=== PATIENT | male | born 1985 | race Two or more races ===

== ENCOUNTER 2022-01-27 18:16 | Inpatient (IN) | payer OTHER ==
[~2022-01-27] VITALS: Ht 162.6 cm; Wt 58.0 kg
[2022-01-27 18:56] LABS: BASOPHILS % (AUTO) 0.5 % (0.0-2.0); EOSINOPHILS % (AUTO) 1.8 % (1.0-6.0); HEMATOCRIT 42.9 % (41-53); LYMPHOCYTES # (AUTO) 1.8 K/uL (1.0-4.8); LYMPHOCYTES % (AUTO) 23.4 % (22.0-44.0); MEAN CORPUSCULAR HEMOGLOBIN 30.9 pg (26.0-34.0); MEAN CORPUSCULAR VOLUME 88 fL (80-100); MONOCYTES % (AUTO) 12.4 % (2.0-9.0); NEUTROPHILS # (AUTO) 4.8 K/uL (1.8-7.7); NEUTROPHILS % (AUTO) 61.9 % (40.0-70.0); PLATELET COUNT (AUTO) 477 K/uL (150-450); RED BLOOD CELL COUNT(AUTO) 4.85 MIL/uL (4.50-5.90); RED CELL DISTRIBUTION WIDTH 12.9 % (11.5-14.5)
[2022-01-27 19:05] LABS: ANION GAP 10 mmol/L (8-16); CARBON DIOXIDE 27 mmol/L (22-29); CHLORIDE 101 mmol/L (98-107); CREATININE 0.65 mg/dL (0.60-1.30); GLUCOSE,RANDOM 93 mg/dL (70-110); POTASSIUM 4.2 mmol/L (3.5-5.1); SODIUM SERUM 138 mmol/L (136-145); UREA NITROGEN, BLOOD 9 mg/dL (7-18)
[2022-01-27 19:08] LABS: GLOMERULAR FILTR. RATE CALC > 60 mL/min (>60)
[2022-01-27 19:11] LABS: ALANINE AMINOTRANSFERASE 37 U/L (12-78); ALBUMIN 3.5 g/dL (3.4-5.0); ALKALINE PHOSPHATASE 93 U/L (46-116); ASPARTATE AMINOTRANSFERASE 18 U/L (15-37); BILIRUBIN,TOTAL 0.3 mg/dL (0.1-1.0); TOTAL PROTEIN, SERUM 8.1 g/dL (6.4-8.2)
[2022-01-27 19:11] LABS: COVID AG,FIA SOURCE NASOPHARYNGEAL
[2022-01-27] MEDS ORDERED: ALBUTEROL SULFATE HFA 90 MCG/PUFF 8 GM INHALER IH PRN (21:30)
[2022-01-27] MEDS ORDERED: IBUPROFEN 400 MG TABLET PO PRN (21:30)
[2022-01-27] MEDS ORDERED: LOPERAMIDE HCL 2 MG CAPSULE PO PRN (21:30)
[2022-01-27] MEDS ORDERED: MAG HYDROX/AL HYDROX/SIMETH ES 30 ML SUSPENSION UDCUP PO PRN (21:30)
[2022-01-27] MEDS ORDERED: NICOTINE 14 MG/24 HOUR PATCH TD PRN (21:30)
[2022-01-27] MEDS ORDERED: GuaiFENesin/D-METHORPHAN [SUGAR-FREE] 200-20MG/10 ML SYRUP UDCUP PO PRN (21:30)
[2022-01-27] MEDS ORDERED: PETROLATUM,WHITE 28 GM JELLY TP PRN (21:30)
[2022-01-27] MEDS ORDERED: CloNIDine HCL 0.1 MG TABLET PO PRN (21:30)
[2022-01-27] MEDS ORDERED: MAGNESIUM HYDROXIDE SUSPENSION 30 ML UDCUP PO PRN (21:30)
[2022-01-27] MEDS ORDERED: ONDANSETRON HCL 4 MG TABLET PO PRN (21:30)
[2022-01-27] MEDS ORDERED: ACETAMINOPHEN 325 MG TABLET PO PRN (21:30)
[2022-01-28 01:01] VITALS: BP 107/72
[2022-01-28 04:00] VITALS: BP 97/56
[2022-01-28 07:11] LABS: BASOPHILS % (AUTO) 0.6 % (0.0-2.0); EOSINOPHILS % (AUTO) 1.5 % (1.0-6.0); HEMATOCRIT 43.9 % (41-53); HEMOGLOBIN 15.3 g/dL (13.5-17.5); LYMPHOCYTES # (AUTO) 1.1 K/uL (1.0-4.8); LYMPHOCYTES % (AUTO) 12.6 % (22.0-44.0); MEAN CORPUSCULAR HEMOGLOBIN 30.9 pg (26.0-34.0); MEAN CORPUSCULAR HGB CONC 34.9 G/dL (31.0-37.0); MEAN CORPUSCULAR VOLUME 88 fL (80-100); MONOCYTES % (AUTO) 11.2 % (2.0-9.0); NEUTROPHILS # (AUTO) 6.3 K/uL (1.8-7.7); NEUTROPHILS % (AUTO) 74.1 % (40.0-70.0); PLATELET COUNT (AUTO) 440 K/uL (150-450); RED BLOOD CELL COUNT(AUTO) 4.96 MIL/uL (4.50-5.90); RED CELL DISTRIBUTION WIDTH 13.4 % (11.5-14.5)
[2022-01-28 08:10] VITALS: BP 107/57
[2022-01-28 16:08] VITALS: BP 105/56
[2022-01-28 19:55] VITALS: BP 106/58
[2022-01-29 01:15] VITALS: BP 106/69
[2022-01-29 03:40] VITALS: BP 104/64
[2022-01-29 08:10] VITALS: BP 101/59
[2022-01-29] MEDS ORDERED: SODIUM CHLORIDE 3% 15 ML NEB SOLUTION NEB ONE (16:31)
[2022-01-29 20:16] VITALS: BP 97/59
[2022-01-30 05:07] VITALS: BP 103/65
[2022-01-30 07:07] LABS: HIV 1-2 SCREEN 4TH GEN W/RFLX Non Reactive (Non Reactive)
[2022-01-30 07:29] VITALS: BP 102/61
[2022-01-30] MEDS ORDERED: 0.9% SODIUM CHLORIDE 5 ML NEB SOLUTION NEB ONE (09:42)
[2022-01-30] MEDS ORDERED: SODIUM CHLORIDE 3% 15 ML NEB SOLUTION NEB ONE (09:42)
[2022-01-30 15:07] VITALS: BP 108/64
[2022-01-30 20:00] VITALS: BP 108/63
[2022-01-31 05:00] VITALS: BP 103/60
[2022-01-31 07:37] VITALS: BP 104/58
[2022-01-31 16:06] VITALS: BP 107/61
[2022-01-31 20:15] VITALS: BP 104/61
[2022-02-01 04:20] VITALS: BP 102/64
[2022-02-01 08:32] VITALS: BP 108/64
[2022-02-01 20:12] VITALS: BP 109/69
[2022-02-02 04:37] VITALS: BP 104/61
[2022-02-02 08:11] VITALS: BP 109/58
[2022-02-02 10:07] LABS: QUANTIFERON, TB GOLD PLUS Positive (Negative)
[2022-02-02 16:02] VITALS: BP 116/73
[2022-02-02 19:40] VITALS: BP 111/62
[2022-02-03 04:10] VITALS: BP 96/65
[2022-02-03 08:00] VITALS: BP 129/59
[2022-02-03 16:08] VITALS: BP 124/62
[2022-02-03 20:14] VITALS: BP 108/60
[2022-02-04 04:55] VITALS: BP 104/65
[2022-02-04 07:49] VITALS: BP 102/61
[2022-02-04 15:54] VITALS: BP 113/60
[2022-02-04 20:21] VITALS: BP 112/61
[2022-02-05 04:30] VITALS: BP 109/62
[2022-02-05 08:07] VITALS: BP 100/69
[2022-02-05 10:43] LABS: COVID AG,FIA SOURCE NASAL SWAB
[2022-02-05 16:15] VITALS: BP 100/56
[2022-02-05 19:25] VITALS: BP 109/58
[2022-02-06 04:39] VITALS: BP 102/59
[2022-02-06 08:25] VITALS: BP 100/67
[2022-02-06] MEDS: RIFAMPIN 300 MG CAPSULE PO SCH (13:04)
[2022-02-06] MEDS: ISONIAZID 300 MG TABLET PO SCH (13:04)
[2022-02-06] MEDS: PYRAZINAMIDE 500 MG TABLET PO SCH (13:04)
[2022-02-06] MEDS: ETHAMBUTOL HCL 400 MG TABLET PO SCH (13:05)
[2022-02-06] MEDS: PYRIDOXINE HCL 50 MG TABLET PO SCH (13:05)
[2022-02-06 20:01] VITALS: BP 101/60
[2022-02-07 04:29] VITALS: BP 103/64
[2022-02-07 08:14] VITALS: BP 92/57
[2022-02-07] MEDS: PYRAZINAMIDE 500 MG TABLET PO SCH (08:56)
[2022-02-07] MEDS: PYRIDOXINE HCL 50 MG TABLET PO SCH (08:56)
[2022-02-07] MEDS: DOCUSATE SODIUM 100 MG CAPSULE PO PRN (08:56)
[2022-02-07] MEDS: RIFAMPIN 300 MG CAPSULE PO SCH (08:56)
[2022-02-07] MEDS: ISONIAZID 300 MG TABLET PO SCH (08:57)
[2022-02-07] MEDS: ETHAMBUTOL HCL 400 MG TABLET PO SCH (08:57)
[2022-02-07 16:22] VITALS: BP 96/67
[2022-02-07 19:31] VITALS: BP 111/67
[2022-02-08 05:32] VITALS: BP 97/61
[2022-02-08 07:37] VITALS: BP 113/65
[2022-02-08] MEDS: RIFAMPIN 300 MG CAPSULE PO SCH (08:27)
[2022-02-08] MEDS: ISONIAZID 300 MG TABLET PO SCH (08:27)
[2022-02-08] MEDS: ETHAMBUTOL HCL 400 MG TABLET PO SCH (08:28)
[2022-02-08] MEDS: PYRAZINAMIDE 500 MG TABLET PO SCH (08:28)
[2022-02-08] MEDS: PYRIDOXINE HCL 50 MG TABLET PO SCH (08:28)
[2022-02-08] MEDS: DOCUSATE SODIUM 100 MG CAPSULE PO PRN (08:28)
[2022-02-08 15:35] VITALS: BP 116/68
[2022-02-08 19:59] VITALS: BP 97/54
[2022-02-09 05:27] VITALS: BP 94/55
[2022-02-09] MEDS: DOCUSATE SODIUM 100 MG CAPSULE PO PRN (07:59)
[2022-02-09] MEDS: RIFAMPIN 300 MG CAPSULE PO SCH (07:59)
[2022-02-09] MEDS: ETHAMBUTOL HCL 400 MG TABLET PO SCH (07:59)
[2022-02-09] MEDS: PYRAZINAMIDE 500 MG TABLET PO SCH (07:59)
[2022-02-09] MEDS: ISONIAZID 300 MG TABLET PO SCH (07:59)
[2022-02-09] MEDS: PYRIDOXINE HCL 50 MG TABLET PO SCH (07:59)
[2022-02-09 08:11] VITALS: BP 105/51
[2022-02-09 15:35] VITALS: BP 105/66
[2022-02-09 20:47] VITALS: BP 106/72
[2022-02-10 05:00] VITALS: BP 103/68
[2022-02-10 07:10] LABS: BASOPHILS % (AUTO) 0.5 % (0.0-2.0); EOSINOPHILS % (AUTO) 3.1 % (1.0-6.0); HEMATOCRIT 42.1 % (41-53); HEMOGLOBIN 14.7 g/dL (13.5-17.5); LYMPHOCYTES # (AUTO) 2.4 K/uL (1.0-4.8); LYMPHOCYTES % (AUTO) 27.4 % (22.0-44.0); MEAN CORPUSCULAR HEMOGLOBIN 30.8 pg (26.0-34.0); MEAN CORPUSCULAR VOLUME 88 fL (80-100); MONOCYTES # (AUTO) 0.7 K/uL (0.1-1.0); MONOCYTES % (AUTO) 8.3 % (2.0-9.0); NEUTROPHILS # (AUTO) 5.4 K/uL (1.8-7.7); NEUTROPHILS % (AUTO) 60.7 % (40.0-70.0); PLATELET COUNT (AUTO) 319 K/uL (150-450); RED BLOOD CELL COUNT(AUTO) 4.78 MIL/uL (4.50-5.90); RED CELL DISTRIBUTION WIDTH 13.6 % (11.5-14.5)
[2022-02-10 07:28] LABS: ALANINE AMINOTRANSFERASE 47 U/L (12-78); ALBUMIN 3.3 g/dL (3.4-5.0); ALKALINE PHOSPHATASE 83 U/L (46-116); ANION GAP 3 mmol/L (8-16); ASPARTATE AMINOTRANSFERASE 18 U/L (15-37); BILIRUBIN,TOTAL 0.3 mg/dL (0.1-1.0); CALCIUM, TOTAL 9.1 mg/dL (8.8-10.5); CARBON DIOXIDE 31 mmol/L (22-29); CHLORIDE 103 mmol/L (98-107); CREATININE 1.07 mg/dL (0.60-1.30); GLUCOSE,RANDOM 93 mg/dL (70-110); POTASSIUM 4.5 mmol/L (3.5-5.1); SODIUM SERUM 137 mmol/L (136-145); TOTAL PROTEIN, SERUM 7.4 g/dL (6.4-8.2); UREA NITROGEN, BLOOD 13 mg/dL (7-18)
[2022-02-10 07:49] LABS: GLOMERULAR FILTR. RATE CALC > 60 mL/min (>60)
[2022-02-10] MEDS: ISONIAZID 300 MG TABLET PO SCH (08:10)
[2022-02-10] MEDS: RIFAMPIN 300 MG CAPSULE PO SCH (08:10)
[2022-02-10] MEDS: PYRAZINAMIDE 500 MG TABLET PO SCH (08:10)
[2022-02-10] MEDS: PYRIDOXINE HCL 50 MG TABLET PO SCH (08:10)
[2022-02-10] MEDS: ETHAMBUTOL HCL 400 MG TABLET PO SCH (08:10)
[2022-02-10 08:37] VITALS: BP 105/59
[2022-02-10] MEDS ORDERED: ETHA100 PO (10:39)
[2022-02-10] MEDS ORDERED: ISON100L PO (10:40)
[2022-02-10] MEDS ORDERED: PYRA500 PO (10:40)
[2022-02-10] MEDS ORDERED: RIFA300 PO (10:40)
[2022-02-10] MEDS ORDERED: PYRI-6 PO (10:40)
== END 2022-02-10 13:56 | DRG 179 ==
LOC: EMS 18:24 → 6S 22:20
PROVIDERS: ADMIT Internal Medicine; ATTEND Internal Medicine
DX: U07.1 COVID-19 (principal); Z20.1 Contact with and (suspected) exposure to tuberculosis; R76.11 Nonspecific reaction to tuberculin skin test without active tuberculosis; J47.9 Bronchiectasis, uncomplicated; Z86.11 Personal history of tuberculosis; Z87.891 Personal history of nicotine dependence; Z79.899 Other long term (current) drug therapy
CPT/HCPCS: 71045; 71046; 71250; 80053; 84443; 85025; 86480; 86635; 87015; 87206; 87389; 87556; 94640; 99285; 36415-L1; 36415-TC; U0003